=== PATIENT | female | born 1980 | race Caucasian/White ===

== ENCOUNTER → 2019-12-04 | Outpatient (CLI) | payer OTHER ==
[~2019-12-04] MED LIST: DOXYCYCLINE100 M3 PO; GOOD NEIGHBOR L10 MG PO; Kenalog 0.5% Oi15 GM T; NASALCROM26 ML NAS; ONE DAILY COMP1 EACH PO; PEPPERMINT OIL PO; PROBIOTIC1 EAC1 PO; PROVENTIL HFA6.7 GM INH; SERTRALINE HYDR50 MG PO; SUPHEDRINE PE10 MG PO; TRAMADOL HCL50 MG PO; TRAZODONE50 MG PO; XARELTO10 MG PO
[2019-12-04 15:22] LABS: BASO % 0.6 % (0.0-1.0); EOS # 0.1 10*3/uL (0.0-0.4); EOS % 1.7 % (1.0-4.0); LYMPH # 1.5 10*3/uL (1.3-4.4); LYMPH % 21.8 % (27.0-41.0); MEAN CELL VOLUME 89.3 fl (81.0-99.0); MEAN CORPUSCULAR HGB 29.4 pg (27.0-31.0); MEAN CORPUSCULAR HGB CONC 32.9 g/dl (33.0-37.0); MEAN PLATELET VOLUME 10.2 fl (9.6-12.3); MONO # 0.6 10*3/uL (0.1-1.0); MONO % 8.9 % (3.0-9.0); NEUT # 4.6 10*3/uL (2.3-7.9); NEUT % 66.7 % (47.0-73.0); PLATELET COUNT AUTOMATED 227 10*3/uL (130-400); RED BLOOD COUNT 4.59 10*6/uL (4.10-5.10); RED CELL DISTRI WIDTH 12.2 % (0-14.5); WHITE BLOOD COUNT 6.9 10*3/uL (4.8-10.8)
[2019-12-04 15:54] LABS: POTASSIUM 3.9 mmol/L (3.5-5.1)
== END | disposition home or self-care (01) ==
LOC: COVID19 11-27 11:30 → LAB 02:21 → COVID19 02:21
PROVIDERS: ATTEND Podiatrist
DX: Z01.812 Encounter for preprocedural laboratory examination (principal); Z20.828 Contact with and (suspected) exposure to other viral communicable diseases; M20.5X9 Other deformities of toe(s) (acquired), unspecified foot; M21.6X9 Other acquired deformities of unspecified foot

== ENCOUNTER → 2019-12-09 | Day surgery (SDC) | payer OTHER ==
[~2019-12-09] VITALS: Ht 167.6 cm; Wt 68.0 kg
[2019-12-09 06:20] VITALS: BP 126/68
[2019-12-09 09:26] VITALS: BP 114/42
[2019-12-09 09:41] VITALS: BP 108/60
[2019-12-09 09:56] VITALS: BP 108/54
--- NOTE | 2019-12-09 09:58 | NUR ---
PATIENT REQUESTING MEDICATION FOR PAIN. ANESTHESIA PAGED.
--- NOTE | 2019-12-09 10:04 | NUR ---
PAIN 6
[2019-12-09 10:11] VITALS: BP 107/55
== END | disposition home or self-care (01) ==
LOC: SDC 11-27 12:30
PROVIDERS: ATTEND Podiatrist
DX: M20.5X2 Other deformities of toe(s) (acquired), left foot (principal); M19.072 Primary osteoarthritis, left ankle and foot; F41.9 Anxiety disorder, unspecified; G47.00 Insomnia, unspecified; J45.909 Unspecified asthma, uncomplicated; D50.0 Iron deficiency anemia secondary to blood loss (chronic); R60.9 Edema, unspecified; Z88.8 Allergy status to other drugs, medicaments and biological substances; Z98.890 Other specified postprocedural states; Z79.899 Other long term (current) drug therapy

== ENCOUNTER 2019-12-11 09:44 | Emergency (ER) | payer OTHER | END 2019-12-11 12:38 | disposition home or self-care (01) | LOC: ED 09:44 | DX: G89.18 Other acute postprocedural pain (principal); Z79.899 Other long term (current) drug therapy ==

== ENCOUNTER → 2025-03-01 | Outpatient (CLI) | payer OTHER | END | disposition home or self-care (01) | LOC: US 09:46 | PROVIDERS: ATTEND Obstetrics & Gynecology | DX: D25.9 Leiomyoma of uterus, unspecified (principal); N85.4 Malposition of uterus; N85.9 Noninflammatory disorder of uterus, unspecified ==